=== PATIENT | male | born 1970 | race Caucasian/White ===

== ENCOUNTER 2017-09-10 11:18 | Inpatient (IN) | payer MEDICAID ==
[~2017-09-10] VITALS: Ht 182.9 cm; Wt 81.8 kg
--- NOTE | ~2017-09-10 | EC ---
PATIENT:SURENDRA OCONNOR DATE OF SERVICE: 09/10/17 SEX: M MEDICAL RECORD: [id number] DATE OF : 72 LOCATION:D.M2 D.213 AGE OF PATIENT: 47 ADMISSION DATE: 09/10/17 REFERRING PHYSICIAN: INTERPRETING PHYSICIAN: JORGE VAZQUEZ MD ECHOCARDIOGRAM REPORT ECHO CHARGES Date: CLINICAL DIAGNOSIS: ECHOCARDIOGRAPHIC MEASUREMENTS (adult normal given) AC root (d.<3.7cm) cm LV Septum d (<1.2 cm> cm Valve Excursion cm LV Septum (systole) cm Left Atria (s.<4.0cm> cm LVPW d(<1.2cm) cm RV (d.<2.3cm) cm LVPW (sytole) cm LV diastole(<5.6CM) cm MV E-F(>70mm/sec) cm LV systole cm LVOT Diameter cm MV exc.(>10mm) cm Est.ejection fraction (50-75%) % DOPPLER: LVIT cm/sec A cm/sec E cm/sec LA cm/sec RVSP mmHg LVOT cm/sec AOP1/2T m/s Asc. Ao cm/sec RVOT cm/sec RA cm/sec PA cm/sec AV Gradient Peak mmHg AV Mean mmHg AV Area cm MV Gradient Peak mmHg MV Mean mmHg MV Area cm COMMENTS: Evaporator Operator Molasses: Corporate Lawyer: [email or web address]# Pericardial Effusion DATE OF SERVICE: 09/11/2017 FINDINGS: 1. Left ventricular chamber size is within normal limits. Left ventricular systolic function is normal. Overall ejection fraction estimated at 55%. 2. Left atrium is within normal limits at 2.8 cm. Right atrium and right ventricular sizes are mildly dilated. 3. Valvular structures have normal structure and motion. 4. Doppler interrogation reveals moderate mitral regurgitation, moderate tricuspid regurgitation, no other valvular insufficiency or stenosis. Pulmonary ECHOCARDIOGRAM REPORT [id number] SURENDRA OCONNOR systolic pressure is estimated at 36 mmHg. 5. No evidence of pericardial effusion or left ventricular thrombus. TRANSINT:[id number] Voice Confirmation ID: [id number] DOCUMENT ID: [id number] JOGRE VAZQUEZ MD at 1741 CC: [id number] DICTATION DATE: 09/11/17 1559 LEAF SIZE PICKER: 09/11/17 1637 DIS IN 09/12/17 [facility] [address] [facility] [place] [address]
[2017-09-10 08:00] VITALS: BP 107/65
[2017-09-10] MEDS ORDERED: HYDROCODONE-APA1 TAB PO (11:35)
[2017-09-10] MEDS ORDERED: PRINIVIL20 MG PO (11:36)
[2017-09-10 12:29] LABS: APPEARANCE CLEAR (CLEAR); BILIRUBIN NEGATIVE (NEGATIVE); COLOR YELLOW (YELLOW); GLUCOSE NEGATIVE (NEGATIVE); KETONE NEGATIVE (NEGATIVE); NITRITE NEGATIVE (NEGATIVE); PROTEIN 2+ mg/dL (NEGATIVE); UROBILINOGEN NORMAL (NORMAL)
[2017-09-10 12:30] LABS: BACTERIA FEW /hpf (NONE SEEN); EPITHELIAL CELLS 0-5 /hpf (0-5); HYALINE CAST 0-5 /lpf (NONE SEEN); RED CELLS - URINE 0-5 /hpf (0-5); WHITE CELLS - URINE 0-5 /hpf (0-5)
[2017-09-10 13:00] VITALS: BP 107/71
[2017-09-10 13:19] LABS: BASOPHILS 0.1 % (0-2); EOSINOPHILS 0.5 % (0-7); HEMATOCRIT 40.8 % (42.0-54.0); HEMOGLOBIN 13.2 g/dL (13.5-17.5); IMMATURE GRANULOCYTES 0.2 % (0-5); LYMPHOCYTES 27.6 % (15-50); MCH 28.4 pg (26.0-34.0); MCHC 32.4 g/dL (31.0-37.0); MCV 87.7 fL (80.0-100.0); MONOCYTES 11.8 % (2-11); NEUTROPHILS 59.8 % (40-80); PLATELET COUNT 251 10x3/uL (130-400); RBC 4.65 10x6/uL (4.20-6.10); RDW 13.9 % (11.5-14.5); WBC 10.4 10x3/uL (4.8-10.8)
[2017-09-10 13:30] LABS: ALBUMIN 3.1 g/dL (3.4-5.0); BILIRUBIN - TOTAL 0.69 mg/dL (0.2-1.3); CARBON DIOXIDE 24.4 mmol/L (21.0-32.0); CREATININE - SERUM 5.9 mg/dL (0.6-1.3); POTASSIUM - SERUM 4.4 mmol/L (3.5-5.1); PROTEIN - SERUM 6.5 g/dL (6.4-8.2)
[2017-09-10 14:00] VITALS: BP 108/74
[2017-09-10 14:22] LABS: ERYTHROCYTE SEDIMENTATION RATE 3 mm/hr (0-15)
[2017-09-10 14:30] VITALS: BP 108/72
[2017-09-10 15:00] VITALS: BP 100/71
[2017-09-10 15:13] LABS: CKMB 10.7 U/L (0.0-3.6); CREATINE KINASE 637 UL (21-232); TROPONIN-I 0.028 ng/mL (0.000-0.060)
[2017-09-10] MEDS ORDERED: SYNTHROID25 MCG PO (16:13)
[2017-09-10] MEDS ORDERED: CHILDREN'S ASPI81 MG PO (16:14)
[2017-09-10 17:52] VITALS: BMI 24.4
[2017-09-10 20:09] LABS: CKMB 7.8 U/L (0.0-3.6); CREATINE KINASE 502 UL (21-232); TROPONIN-I 0.028 ng/mL (0.000-0.060)
[2017-09-11 02:40] LABS: BASOPHILS 0.3 % (0-2); EOSINOPHILS 1.5 % (0-7); HEMATOCRIT 40.6 % (42.0-54.0); HEMOGLOBIN 13.1 g/dL (13.5-17.5); IMMATURE GRANULOCYTES 0.2 % (0-5); LYMPHOCYTES 40.7 % (15-50); MCH 28.4 pg (26.0-34.0); MCHC 32.3 g/dL (31.0-37.0); MCV 87.9 fL (80.0-100.0); MEAN PLATELET VOLUME 9.8 fL (7.4-10.4); MONOCYTES 12.4 % (2-11); NEUTROPHILS 44.9 % (40-80); PLATELET COUNT 231 10x3/uL (130-400); RBC 4.62 10x6/uL (4.20-6.10); RDW 13.8 % (11.5-14.5)
[2017-09-11 02:58] LABS: ALBUMIN 2.8 g/dL (3.4-5.0); ALKALINE PHOSPHATASE 110 U/L (46-116); ALT (SGPT) 85 U/L (10-68); BILIRUBIN - TOTAL 0.41 mg/dL (0.2-1.3); CALC OSMOLALITY 290 mosm/kg (275-300); CALCIUM 8.2 mg/dL (8.5-10.1); CARBON DIOXIDE 30.3 mmol/L (21.0-32.0); CHLORIDE - SERUM 109 mmol/L (98-107); CKMB 5.5 U/L (0.0-3.6); GLUCOSE 98 mg/dL (74-106); POTASSIUM - SERUM 4.3 mmol/L (3.5-5.1); PROTEIN - SERUM 6.2 g/dL (6.4-8.2); SODIUM 143 mmol/L (136-145); TROPONIN-I < 0.017 ng/mL (0.000-0.060); UREA NITROGEN 28 mg/dL (7-18)
[2017-09-11 03:01] LABS: CREATINE KINASE 354 UL (21-232); CREATININE - SERUM 2.4 mg/dL (0.6-1.3); eGFR NON AFRICAN AMERICAN 31 mL/min (90-120)
[2017-09-11 08:34] VITALS: Ht 182.9 cm; Wt 81.8 kg
[2017-09-11 08:35] VITALS: BP 104/62
[2017-09-11 11:48] LABS: APPEARANCE HAZY (CLEAR); BILIRUBIN NEGATIVE (NEGATIVE); COLOR DK YELLOW (YELLOW); GLUCOSE NEGATIVE (NEGATIVE); KETONE NEGATIVE (NEGATIVE); NITRITE NEGATIVE (NEGATIVE); PROTEIN 1+ mg/dL (NEGATIVE); UROBILINOGEN NORMAL (NORMAL)
[2017-09-11 11:51] LABS: BACTERIA MODERATE /hpf (NONE SEEN); EPITHELIAL CELLS 0-5 /hpf (0-5); GRANULAR CAST OCC /lpf (NONE SEEN); HYALINE CAST 0-5 /lpf (NONE SEEN); MUCUS <1+ /lpf (NONE SEEN)
[2017-09-11 11:55] VITALS: BP 127/88
[2017-09-11 11:58] LABS: PROTEIN - URINE 123.4 mg/dL (0.0-11.9)
[2017-09-11 12:00] LABS: UDS - AMPHET POSITIVE QUAL (NEGATIVE); UDS - BARB NEGATIVE QUAL (NEGATIVE); UDS - BENZO NEGATIVE QUAL (NEGATIVE); UDS - COCAINE NEGATIVE QUAL (NEGATIVE); UDS - OPIATE POSITIVE QUAL (NEGATIVE); UDS - PCP NEGATIVE QUAL (NEGATIVE); UDS - THC NEGATIVE QUAL (NEGATIVE)
[2017-09-11 12:02] LABS: CREATININE - URINE 263.2 mg/dL (30-125); PRO/CRE RATIO URINE 0.5 mg/g
[2017-09-11 15:47] VITALS: BP 130/90
[2017-09-11 20:00] VITALS: BP 159/99
[2017-09-12 04:00] VITALS: BP 154/81
[2017-09-12 06:35] LABS: BASOPHILS 0.3 % (0-2); EOSINOPHILS 1.3 % (0-7); HEMATOCRIT 39.2 % (42.0-54.0); HEMOGLOBIN 12.7 g/dL (13.5-17.5); LYMPHOCYTES 39.3 % (15-50); MCH 28.2 pg (26.0-34.0); MCHC 32.4 g/dL (31.0-37.0); MCV 86.9 fL (80.0-100.0); MEAN PLATELET VOLUME 10.6 fL (7.4-10.4); MONOCYTES 9.1 % (2-11); PLATELET COUNT 209 10x3/uL (130-400); RBC 4.51 10x6/uL (4.20-6.10); RDW 13.3 % (11.5-14.5)
[2017-09-12 07:05] LABS: ALBUMIN 2.6 g/dL (3.4-5.0); ALKALINE PHOSPHATASE 97 U/L (46-116); ALT (SGPT) 67 U/L (10-68); BILIRUBIN - TOTAL 0.49 mg/dL (0.2-1.3); CALCIUM 8.2 mg/dL (8.5-10.1); CARBON DIOXIDE 25.1 mmol/L (21.0-32.0); CHLORIDE - SERUM 108 mmol/L (98-107); GLUCOSE 91 mg/dL (74-106); POTASSIUM - SERUM 4.3 mmol/L (3.5-5.1); PROTEIN - SERUM 6.1 g/dL (6.4-8.2); SODIUM 141 mmol/L (136-145)
[2017-09-12 07:06] LABS: CALC OSMOLALITY 281 mosm/kg (275-300); CREATININE - SERUM 0.9 mg/dL (0.6-1.3); UREA NITROGEN 16 mg/dL (7-18); eGFR NON AFRICAN AMERICAN > 90 mL/min (90-120)
[2017-09-12 08:29] VITALS: BP 142/85
[2017-09-12 11:45] VITALS: BP 157/102
[2017-09-12 13:18] LABS: SPE - A/G RATIO 1.1 (0.7-1.7); SPE - ALBUMIN 3.2 g/dL (2.9-4.4); SPE - ALPHA-1 GLOBULIN 0.2 g/dL (0.0-0.4); SPE - ALPHA-2 GLOBULIN 0.6 g/dL (0.4-1.0); SPE - M-SPIKE Not Observed g/dL (Not Observed)
[2017-09-12 15:23] LABS: UPE RAND - ALBUMIN 18.2 % (()); UPE RAND - ALPHA 1 GLOBULIN 4.8 % (()); UPE RAND - ALPHA 2 GLOBULIN 19.7 % (()); UPE RAND - BETA GLOBULIN 32.4 % (()); UPE RAND - GAMMA GLOBULIN 24.8 % (())
== END 2017-09-12 16:20 | disposition home or self-care (01) | DRG 683 ==
LOC: D.ER 11:18 → D.M2 12:59 → D.EDHOLD 12:59 → D.M2 14:00
PROVIDERS: Family Medicine; Internal Medicine Nephrology
DX: N17.9 Acute kidney failure, unspecified (principal); M62.82 Rhabdomyolysis; F17.203 Nicotine dependence unspecified, with withdrawal; R07.9 Chest pain, unspecified; D50.9 Iron deficiency anemia, unspecified; F15.10 Other stimulant abuse, uncomplicated; I08.1 Rheumatic disorders of both mitral and tricuspid valves; E86.0 Dehydration; M54.2 Cervicalgia; I10 Essential (primary) hypertension